=== PATIENT | male | born 1950 | race Caucasian/White ===

== ENCOUNTER 2024-09-23 00:35 | Emergency (ER) | payer MEDICARE, BC ==
[~2024-09-23] VITALS: Ht 175.3 cm; Wt 95.3 kg
[2024-09-23] MEDS ORDERED: HYDROCODONE/APAP 10-325 MG TABLET ONE (02:40)
[2024-09-23] MEDS: HYDROCODONE/APAP 10-325 MG TABLET PO ONE (02:51)
[2024-09-23] MEDS ORDERED: NAPR-1192 PO (03:54)
[2024-09-23 04:05] VITALS: BP 140/78; O2SAT 99
== END 2024-09-23 04:06 | disposition home or self-care (01) ==
LOC: ER 00:35
DX: S13.9XXA Sprain of joints and ligaments of unspecified parts of neck, initial encounter (principal); S33.9XXA Sprain of unspecified parts of lumbar spine and pelvis, initial encounter; R51.9 Headache, unspecified; Z79.899 Other long term (current) drug therapy; V89.2XXA Person injured in unspecified motor-vehicle accident, traffic, initial encounter; Y93.89 Activity, other specified; Y92.89 Other specified places as the place of occurrence of the external cause; Y99.8 Other external cause status
CPT/HCPCS: 70450; 72125; 72131; A4606; A4663